=== PATIENT | female | born 1975 | race Two or more races ===

== ENCOUNTER → 2020-12-07 12:01 | Outpatient (BNVA) | payer SELFPAY | PROVIDERS: Visit Provider Advanced Practice Midwife ==

== ENCOUNTER → 2020-12-16 13:33 | Outpatient (BNVA) | payer OTHER, SELFPAY | PROVIDERS: Visit Provider Advanced Practice Midwife ==

== ENCOUNTER 2021-03-18 10:11 | Outpatient (REF) | payer OTHER, SELFPAY ==
--- NOTE | ~2021-03-18 | MM_ITS ---
EXAMINATION: MM SCREENING DIGITAL BREAST TOMOSYNTHESIS, BILATERAL CLINICAL INFORMATION: Screening. Asymptomatic. The lifetime risk of breast cancer based on the Tyrer-Cuzick Model is 7%. COMPARISON: Outside mammography: 11/20/2018 ([facility]). TECHNIQUE: Digital breast tomosynthesis is performed in both the craniocaudal and mediolateral oblique views along with computer-aided detection (CAD). Synthesized 2D images are generated from the tomosynthesis. FINDINGS: The breasts are heterogeneously dense, which may obscure small masses (ACR BI-RADS breast composition Category c). There is a fibronodular parenchymal pattern similar to prior outside exam. There is no significant mass or architectural abnormality or abnormal calcifications. The skin contours are smooth. No significant changes. MM/MM tomosynthesis screening BI IMPRESSION: No mammographic evidence of malignancy. ASSESSMENT: BI-RADS 1: Negative RECOMMENDATION: Routine annual mammography screening. This patient's information was entered into a reminder system with a target due date for their next mammogram.
== END 2021-03-18 10:12 | disposition home or self-care (01) ==
LOC: HO.MAMMO 10:11
PROVIDERS: Visit Provider Advanced Practice Midwife
DX: Z12.31 Encounter for screening mammogram for malignant neoplasm of breast (principal)
CPT/HCPCS: 77063; 77067

== ENCOUNTER 2022-02-01 15:04 | Outpatient (REF) | payer OTHER, SELFPAY ==
[2022-02-01 22:25] LABS: CT PCR NOT DETECTED (Not Detect.); NG PCR NOT DETECTED (Not Detect.)
[2022-02-03 07:02] LABS: Follicle Stimulating Hormone 52.8 mIU/mL
== END 2022-02-01 15:05 | disposition home or self-care (01) ==
LOC: HO.LAB 15:04
PROVIDERS: Visit Provider Advanced Practice Midwife
DX: R23.2 Flushing (principal); Z11.3 Encounter for screening for infections with a predominantly sexual mode of transmission
CPT/HCPCS: 36415; 83001; 87491; 87591

== ENCOUNTER → 2022-03-22 13:15 | Outpatient (BNVA) | payer OTHER, SELFPAY | PROVIDERS: Visit Provider Advanced Practice Midwife | DX: Z32.02 Encounter for pregnancy test, result negative (principal); Z30.433 Encounter for removal and reinsertion of intrauterine contraceptive device | CPT/HCPCS: 58300; 58301; 81025; J7298 ==

== ENCOUNTER 2022-04-20 14:15 | Outpatient (REF) | payer OTHER, SELFPAY ==
--- NOTE | ~2022-04-20 | US_ITS ---
EXAMINATION: US PELVIS CLINICAL INFORMATION: Pelvic inflammatory disease. LMP 4 months ago COMPARISON: None TECHNIQUE: Ultrasound of the pelvis is performed using both transabdominal and transvaginal transducers along with Doppler. Transvaginal imaging is performed due to inadequate visualization transabdominally. FINDINGS: Uterus: The uterus is anteverted and measures 7.6 x 5.1 x 4.9 cm. Intramural fibroid measures 1.8 cm. The double wall endometrial thickness is 0.4 mm. Intrauterine device appears centered within the canal. The uterus is smooth in contour and has normal myometrial echogenicity. Adnexa: Both ovaries are visualized. There is normal color flow to the adnexa. There is no ovarian torsion. There is no pelvic ascites or fluid collection. Right ovary measures 1.9 x 1.5 x 1.3 cm. Left ovary measures 2.3 x 2.4 x 2.2 cm. US/US pelvic and transvaginal IMPRESSION: 1. Intramural uterine fibroid measures 1.8 cm. 2. Intrauterine device appears centered within the canal.
== END 2022-04-20 14:16 | disposition home or self-care (01) ==
LOC: HO.US 14:15
PROVIDERS: Visit Provider Advanced Practice Midwife
DX: N83.8 Other noninflammatory disorders of ovary, fallopian tube and broad ligament (principal)
CPT/HCPCS: 76830; 76856

== ENCOUNTER → 2022-05-15 11:16 | Outpatient (BNVA) | payer OTHER, SELFPAY | PROVIDERS: Visit Provider Advanced Practice Midwife | DX: Z71.2 Person consulting for explanation of examination or test findings (principal); D25.1 Intramural leiomyoma of uterus; Z97.5 Presence of (intrauterine) contraceptive device | CPT/HCPCS: 99212 ==

== ENCOUNTER → 2022-12-27 15:44 | Outpatient (BNVA) | payer OTHER, SELFPAY | PROVIDERS: Visit Provider Physician Assistant Surgical | DX: Z98.84 Bariatric surgery status (principal); E66.9 Obesity, unspecified ==

== ENCOUNTER 2023-01-07 09:12 | Outpatient (REF) | payer OTHER, SELFPAY ==
[2023-01-07 09:38] LABS: MANUAL DIFF FLAG NO
[2023-01-07 10:09] LABS: Basophils Percent Auto 0.7 % (0-2); Eosinophils Absolute Auto 0.1 X10*3/uL (0.0-0.4); Eosinophils Percent Auto 2.2 % (0-4); Hematocrit 36.3 % (37.0-47.0); Hemoglobin 11.7 g/dl (12.0-16.0); Imm Gran Abs Auto 0.01 X10*3/uL (0.00-0.03); Imm Gran Pct Auto 0.2 % (0.0-0.4); Lymphocytes Absolute Auto 1.4 X10*3/uL (1.2-4.9); Lymphocytes Percent Auto 30.6 % (20-40); Mean Corpuscular HGB Conc 32.2 g/dl (31.0-35.0); Mean Corpuscular Hemoglobin 29.6 pg (27.0-33.0); Mean Corpuscular Volume 91.9 fL (80.0-98.0); Mean Platelet Volume 10.9 fL (9.4-12.3); Monocytes Absolute Auto 0.4 X10*3/uL (0.1-1.2); Monocytes Percent Auto 8.3 % (2-11); Neutrophils Absolute Auto 2.7 x10*3/uL (2.0-8.3); Platelet Count 288 X10*3/uL (160-400); Red Blood Count 3.95 X10*6/uL (4.20-5.50); Red Cell Distribution Width 13.7 % (11.0-16.0); White Blood Count 4.6 X10*3/uL (4.8-10.8)
[2023-01-07 10:20] LABS: Estimated Average Glucose 100 mg/dL; Hemoglobin A1c % 5.1 %
[2023-01-07 11:08] LABS: Alanine Aminotransferase 35 U/L (0-31); Albumin Level 4.2 g/dL (3.5-5.0); Alkaline Phosphatase 48 U/L (39-117); Anion Gap 11 (12-20); Aspartate Amino Transferase 27 U/L (5-31); Bilirubin Total 0.4 mg/dL (0.0-1.0); Blood Urea Nitrogen 11 mg/dL (9-16); C Reactive Protein < 0.10 mg/dL (< or = 0.50); Calcium 9.8 mg/dL (8.4-10.2); Carbon Dioxide 27 mmol/L (22-29); Chloride 108 mmol/L (96-108); Cholesterol 249 mg/dL; Estimated Glomerular Filt Rate > 60; Ferritin 123 ng/mL (10-250); Glucose Random 85 mg/dL (60-115); HDL Cholesterol 64 mg/dL; Iron 132 mcg/dL (30-160); LDL Cholesterol Calculated 169 mg/dl; Percent Iron Saturation 44 % (15-50); Potassium 4.4 mmol/L (3.3-5.1); Sodium 142 mmol/L (135-145); TSH reflex Free T4 1.52 uIU/mL (0.32-4.0); Total Iron Binding Capacity 300 mcg/dL (228-428); Total Protein 6.9 g/dL (6.5-8.0); Triglycerides 82 mg/dL; Unsaturated Iron Binding 168 ug/dL; Vitamin D 25-OH Total 34.3 ng/mL (>30)
[2023-01-07 11:12] LABS: Folate 7.5 ng/mL (> or = 4.0); Vitamin B12 809 pg/mL (200-900)
[2023-01-07 11:15] LABS: Insulin 4 uU/mL (2-29)
[2023-01-09 23:33] LABS: Calcium (PTHI) 9.3 mg/dL (8.6-10.2); PTHI 59 pg/mL (16-77)
[2023-01-10 15:34] LABS: Zinc 79 mcg/dL (60-130)
[2023-01-12 10:09] LABS: Vitamin B1 15 nmol/L (8-30)
[2023-01-12 19:18] LABS: Vitamin A 53 mcg/dL (38-98)
== END 2023-01-07 09:13 | disposition home or self-care (01) ==
LOC: HO.LAB 09:12
PROVIDERS: Visit Provider Physician Assistant Surgical
DX: Z98.84 Bariatric surgery status (principal)
CPT/HCPCS: 36415; 80053; 80061; 82306; 82607; 82728; 82746; 83036; 83525; 83540; 83970; 84425; 84443; 84590; 84630; 85025; 86140

== ENCOUNTER 2023-02-07 14:13 | Outpatient (AMB) | payer OTHER, SELFPAY ==
--- NOTE | 2023-02-07 14:25 | MHC.AMNUTRGE ---
Intake Intake Visit Reasons: (OV) Post Lsg Dos 09/04/18 Allergies No Known Allergies [No Known Allergies*] Allergy (Verified 05/15/22 11:21) HPI Nutrition Presentation Details s/p LSG 09/04/2018 Preop weight 4 years, 5 MO PO Weight on 12/07/2019 145 pounds with a BMI of 24.9 Last weight today (12/27/22) 180 pounds, representing a 35 pound weight Gain - BMI 30.9. Reason for consult elevated BMI Diet Assmnt Details Pt saw Cintia KOHLI 6 wks ago, after being LTFU for over a year. Gave her a new plan which consisted of: Premier shake for breakfast Pure bar for lunch Dinner of 3oz protein/veg, or if she is cooking for family and does not want to cook a separate meal for herself can have another shake or bar. I am struggling mentally now because I can eat a lot more also has to cook for her . Pt also reports a lot of emotional eating. chips, crackers, etc. KNows this isn't real hunger. doesn't have a therapist. Dietary counseling reduction Diagnosis Nutrition problem #1 overweight/obesity As related to (etiology) #1 excess energy intake and physical inactivity As evidenced by (sign/symptom) #1 high BMI Monitoring/Goals Nutrition problem monitoring total energy intake, level of knowledge/skill, total PRO intake, total CHO intake, weight and oral fluids Learning/Education Readiness to learn good Stages of change action Educational materials provided Yes Most Recent Diabetes Results: Cholesterol 249 mg/dL 01/07/23 HDL Cholesterol 64 mg/dL 01/07/23 Triglycerides 82 mg/dL 01/07/23 Creatinine 0.78 mg/dL (0.5-1.4) 01/07/23 Blood Urea Nitrogen 11 mg/dL (9-16) 01/07/23 Sodium 142 mmol/L (135-145) 01/07/23 Potassium 4.4 mmol/L (3.3-5.1) 01/07/23 Chloride 108 mmol/L (96-108) 01/07/23 Carbon Dioxide 27 mmol/L (22-29) 01/07/23 Calcium 9.8 mg/dL (8.4-10.2) 01/07/23 AST 27 U/L (5-31) 01/07/23 ALT 35 U/L (0-31) H 01/07/23 Total Protein 6.9 g/dL (6.5-8.0) 01/07/23 Albumin 4.2 g/dL (3.5-5.0) 01/07/23 [facility] Medical History Left ovarian enlargement Surgical History History of gastric surgery Family History Paternal Grandmother Heart attack Social History Alcohol intake: current Patient Tobacco Use Status: Never used Tobacco Current occupational status: employed Current occupation: Electrical Electronics Technician Assessment & Plan Assessment & Plan (1) Obesity (BMI 30-39.9): Code(s): E66.9 - Obesity, unspecified Patient Instructions: 2 shakes, 1 bar or scottish yogurt, and 1 meal. MNeeds a calcium supplement. gave samples of fusion. also encouraged she have an appt with [facility] but pt would like to think about this now. She would like to call the office back to schedule a f/u appt. Coding Level of Care Code Nutr Indiv Subseq (46109) Diagnoses Obesity (BMI 30-39.9) E66.9 Time Spent (min) 35
== END 2023-02-07 15:04 | disposition home or self-care (01) ==
PROVIDERS: Visit Provider Dietitian, Registered
DX: E66.9 Obesity, unspecified (principal)

== ENCOUNTER → 2023-02-07 14:13 | Outpatient (BNVA) | payer OTHER, SELFPAY | PROVIDERS: Visit Provider Dietitian, Registered | DX: E66.9 Obesity, unspecified (principal) | CPT/HCPCS: 97803 ==